=== PATIENT | female | born 1995 | race Caucasian/White ===

== ENCOUNTER 2021-01-20 06:31 | Day surgery (SDC) | payer BC, OTHER ==
[~2021-01-20 06:31] MED LIST: Lactated Ringers 1,000 ML IV SCH; Sodium Chloride 0.9% 10 ML SDV IV PRN; Sodium Chloride 0.9% 10 ML Syringe FLUSH PRN; Sodium Chloride 0.9% 2.5 ML Syringe FLUSH PRN; ceFAZolin 2 GM in Premix Bag 1 BAG IV ONE
[2021-01-20] MEDS ORDERED: Midazolam 1 MG/ML 2 ML SDV ONE (06:58)
[2021-01-20] MEDS ORDERED: Propofol 200 MG/20 ML SDV ONE (06:58)
[2021-01-20] MEDS ORDERED: fentaNYL 250 MCG/5 ML SDV ONE ×2 (06:59→09:06)
[2021-01-20] MEDS ORDERED: Ondansetron 4 MG/2 ML SDV ONE (07:00)
[2021-01-20] MEDS ORDERED: Glycopyrrolate 0.2 MG/ML SDV ONE (07:00)
[2021-01-20] MEDS ORDERED: Lidocaine 2% 5 ML SDV ONE (07:00)
[2021-01-20] MEDS ORDERED: Rocuronium Bromide 50 MG/5 ML Syringe ONE (07:00)
[2021-01-20] MEDS ORDERED: Ketorolac 30 MG/ML SDV ONE (07:00)
[2021-01-20] MEDS ORDERED: fentaNYL 100 MCG/2 ML SDV IVPUSH PRN (07:11)
[2021-01-20] MEDS ORDERED: Acetaminophen 1,000 MG in Premix Bag 1 BAG IV PRN (07:11)
[2021-01-20] MEDS ORDERED: ceFAZolin 1 GM Vial ONE (07:13)
[2021-01-20] MEDS ORDERED: Sodium Chloride 0.9% 20 ML ONE (07:13)
--- NOTE | 2021-01-20 07:20 | PCM.PREANE ---
Preanesthetic Assessment - Anesthesia/Transfusion/Family Hx Anesthesia History: No Prior Anesthesia Family History of Anesthesia Reaction: No Transfusion History: No Prior Transfusion(s) - Review of Systems General: No Symptoms Pulmonary: No Symptoms Cardiovascular: No Symptoms Gastrointestinal: No Symptoms Neurological: No Symptoms Other: Reports: None - Physical Assessment Vital Signs: Last Vital Signs Temp 97.7 F 01/20/21 07:11 Pulse 57 L 01/20/21 07:11 Resp 16 01/20/21 07:11 BP 105/57 L 01/20/21 07:11 Pulse Ox 96 01/20/21 07:11 Height: 5 ft 5 in Weight: 92.533 kg ASA Class: 2 Mental Status: Alert & Oriented x3 Airway Class: Mallampati = 2 Dentition: Reports: Normal Dentition ROM/Head Extension: Full Lungs: Clear to Auscultation, Normal Respiratory Effort Cardiovascular: Regular Rate, Regular Rhythm - Lab Values: Laboratory Last Values Urine HCG, Qual NEGATIVE (NEGATIVE) 01/20/21 06:40 - Allergies Allergies/Adverse Reactions: Allergies Allergy/AdvReac Type Severity Reaction Status Date / Time No Known Allergies Allergy Verified 01/20/21 07:09 - Blood Blood Available: No - Anesthesia Plan Pre-Op Medication Ordered: None - Acknowledgements Anesthesia Type Planned: General Anesthesia Pt an Appropriate Candidate for the Planned Anesthesia: Yes Alternatives and Risks of Anesthesia Discussed w Pt/Guardian: Yes Pt/Guardian Understands and Agrees with Anesthesia Plan: Yes PreAnesthesia Questionnaire HEENT History: Reports: Other (See Below) Other HEENT History: wears contacts/glasses Cardiovascular History: Reports: None Respiratory History: Reports: None Gastrointestinal History: Reports: None Genitourinary History: Reports: None 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: Musculoskeletal History: Reports: None Neurological History: Reports: None Psychiatric History: Reports: Depression Endocrine/Metabolic History: Reports: Obesity/BMI 30+ Hematologic History: Reports: None Immunologic History: Reports: None Oncologic (Cancer) History: Reports: None Dermatologic History: Reports: None - Past Surgical History Head Surgeries/Procedures: Reports: None HEENT Surgical History: Reports: Myringotomy w Tube(s) Cardiovascular Surgical History: Reports: None GI Surgical History: Reports: Other (See Below) Other GI Surgeries/Procedures: radiofrequency ablation greater saphenous veins in 2018 in [place] Female Surgical History: Reports: None Endocrine Surgical History: Reports: None Neurological Surgical History: Reports: None Musculoskeletal Surgical History: Reports: None Oncologic Surgical History: Reports: None Dermatological Surgical History: Reports: None - SUBSTANCE USE Tobacco Use Status *Q: Never Tobacco User - HOME MEDS Home Medications: Home Meds Scopolamine 1 patch TRDERM ONETIME 01/19/21 [History] - CURRENT (IN HOUSE) MEDS Current Meds: Current Medications Fentanyl (Sublimaze) 50 mcg IVPUSH Q5M PRN PRN Reason: Pain Lactated Ringer's (Ringers, Lactated) 1,000 mls @ 125 mls/hr IV ASDIRECTED LEONOR Last Admin: 01/20/21 07:08 Dose: 125 mls/hr Documented by: Acetaminophen 1,000 mg/ Premix 100 mls @ 400 mls/hr IV Q6H PRN PRN Reason: Pain Sodium Chloride (Saline Flush) 2.5 ml FLUSH ASDIRECTED PRN PRN Reason: Keep Vein Open Sodium Chloride (Normal Saline) 10 ml IV ASDIRECTED PRN PRN Reason: IV Use Sodium Chloride (Saline Flush) 10 ml FLUSH ASDIRECTED PRN PRN Reason: Keep Vein Open Discontinued Medications Cefazolin Sodium (Ancef) Confirm Administered Dose 2 gm .ROUTE .STK-MED ONE Stop: 01/20/21 07:14 Fentanyl (Sublimaze) Confirm Administered Dose 250 mcg .ROUTE .STK-MED ONE Stop: 01/20/21 07:00 Glycopyrrolate (Robinul) Confirm Administered Dose 0.8 mg .ROUTE .STK-MED ONE Stop: 01/20/21 07:01 Cefazolin Sodium/Dextrose 2 gm (/ Premix) 50 mls @ 100 mls/hr IV ONETIME ONE Stop: 01/17/21 09:54 Sodium Chloride (Normal Saline) Confirm Administered Dose 20 mls @ as directed .ROUTE .STK-MED ONE Stop: 01/20/21 07:14 Ketorolac Tromethamine (Toradol) Confirm Administered Dose 30 mg .ROUTE .STK-MED ONE Stop: 01/20/21 07:01 Lidocaine (Xylocaine-Mpf 2%) Confirm Administered Dose 5 ml .ROUTE .STK-MED ONE Stop: 01/20/21 07:01 Midazolam HCl (Versed 1 Mg/Ml) Confirm Administered Dose 2 mg .ROUTE .STK-[place] ONE Stop: 01/20/21 06:59 Ondansetron HCl (Zofran) Confirm Administered Dose 4 mg .ROUTE .[email or web address] ONE Stop: 01/20/21 07:01 Propofol (Diprivan 20 Ml) Confirm Administered Dose 200 mg .ROUTE .[email or web address] ONE Stop: 01/20/21 06:59 Rocuronium [place] (Rocuronium [place]) Confirm Administered Dose 50 mg .ROUTE .[employer] ONE Stop: 01/20/21 07:01
[2021-01-20] MEDS ORDERED: Octyl 2-Cyanoacrylate 1 Tube ONE (07:32)
[2021-01-20] MEDS ORDERED: Bupivacaine 0.5% 10 ML SDV ONE (07:32)
--- NOTE | 2021-01-20 10:13 | PCM.OPNOTE ---
<Stefany Del Cid - Last Filed: 01/20/21 10:11> - General Post-Op/Procedure Note Date of Surgery/Procedure: 01/20/21 Operative Procedure(s): laparoscopic cholecystectomy Findings: normal gallbladder anatomy with omental fibrosis Pre Op Diagnosis: biliary dyskinesia Post-Op Diagnosis: biliary dyskinesia Anesthesia Technique: General ET Tube Fluid Replacement, Intraop: 0 EBL in mLs: 5 Condition: Good <Chayito Ruano - Last Filed: 01/20/21 10:34> - General Post-Op/Procedure Note Findings: Normal appearing gallbladder with adhesions to the surrounding omentum Fluid Replacement, Intraop: 1,500 Output, Urine Amount: 500 Free Text/Narrative:: Intake & Output 01/19/21 01/20/21 01/20/21 22:59 06:59 14:59 Intake Total 0 Balance 0
--- NOTE | 2021-01-20 11:07 | PCM.POSTAN ---
POST ANESTHESIA ASSESSMENT - MENTAL STATUS Mental Status: Alert, Oriented - VITAL SIGNS Vital Signs: Last Vital Signs Temp 98.1 F 01/20/21 10:13 Pulse 61 01/20/21 11:04 Resp 16 01/20/21 11:04 BP 93/53 L 01/20/21 11:04 Pulse Ox 93 L 01/20/21 11:04 - RESPIRATORY Respiratory Status: Respiratory Rate WNL, Airway Patent, O2 Saturation Stable, Supplemental Oxygen - CARDIOVASCULAR CV Status: Pulse Rate WNL, Blood Pressure Stable - GASTROINTESTINAL GI Status: No Symptoms - POST OP HYDRATION Hydration Status: Adequate & Stable
--- NOTE | 2021-01-20 12:43 | PCM48HPAN ---
Post Anesthesia Note - EVALUATION WITHIN 48HRS OF ANESTHETIC Vital Signs in Normal Range: Yes Patient Participated in Evaluation: Yes Respiratory Function Stable: Yes Airway Patent: Yes Cardiovascular Function Stable: Yes Hydration Status Stable: Yes Pain Control Satisfactory: Yes Nausea and Vomiting Control Satisfactory: Yes Mental Status Recovered: Yes Vital Signs: Last Vital Signs Temp 98.1 F 01/20/21 10:13 Pulse 61 01/20/21 11:04 Resp 16 01/20/21 11:04 BP 93/53 L 01/20/21 11:04 Pulse Ox 93 L 01/20/21 11:04
--- NOTE | 2021-01-20 12:57 | OR ---
SURGEON: CHAYITO HAMMOND MD DATE OF PROCEDURE: 01/20/2021 PREOPERATIVE DIAGNOSIS: Biliary dyskinesia. POSTOPERATIVE DIAGNOSIS: Biliary dyskinesia. PROCEDURE PERFORMED: Laparoscopic cholecystectomy. PRIMARY SURGEON: Chayito Hammond MD ANESTHESIA: General endotracheal anesthesia. FLUIDS: 1500 mL of crystalloid. ESTIMATED BLOOD LOSS: 5 mL. URINE OUTPUT: 500 mL. FINDINGS: Normal-appearing gallbladder with adhesions to the surrounding omentum. COMPLICATIONS: None. INDICATIONS FOR EXAMINATION: The patient is a 25-year-old female who presented to the clinic with biliary dyskinesia. I explained the need for a cholecystectomy. I would attempt it laparoscopic, but convert to open should I be unable to perform it safely. I explained the expected perioperative course as well as the risks including bleeding, infection, or damage to surrounding structures. The patient verbalized understanding and wishes to proceed. PROCEDURE IN DETAIL: The patient was brought into the OR and placed on the OR table in supine position. A time-out was completed verifying the patient's name, age, date of , allergies, and procedure to be performed. General endotracheal anesthesia was induced. The left arm was tucked to the patient's side and a Malloy catheter placed. The abdomen was prepped and draped in usual standard fashion. I anesthetized the infraumbilical fold with 0.5% Marcaine plain. An 11 blade was used to make an incision along the fold. Electrocautery was used to dissect down to the level of subcutaneous fat. I bluntly dissected down to the fascia. The fascia was elevated with Ashleigh's and incised sharply with curved Cody scissors. I then dissected down to the peritoneum. The peritoneum was entered bluntly using a hemostat. Entry into the abdomen was palpated digitally. A 12 mm Ko trocar was inserted, and I insufflated the abdomen. A 5 mm 30-degree scope was inserted, and I inspected the area underneath my initial trocar placement. No damage to surrounding structures was noted. The patient was placed into reverse Trendelenburg position and airplaned slightly to the left. 5 mm trocars placed in the following locations under direct visualization; one in the epigastric area, one in the right flank, and one 2 fingerbreadths below the right subcostal margin in the midclavicular line. The dome of the gallbladder was grasped and elevated anteriorly. There were adhesions to the surrounding omentum along the body and infundibulum of the gallbladder. These were taken down with blunt dissection. The infundibulum was grasped, and I began dissection along the critical structures. Using a combination of hook cautery and gentle blunt dissection, I was able to dissect out the cystic duct and artery as well as the proximal one-third of the cystic plate. Once my critical view was achieved, a photograph was taken. I triply clipped and ligated the cystic duct. I doubly clipped and ligated the cystic artery. The remainder of the attachments of the gallbladder to the cystic plate were taken down using electrocautery. Once the gallbladder was free from the liver bed, it was placed in an Endo Catch bag and removed through the infraumbilical port site. I inspected my operative field. There was no evidence of bleeding or bile leakage. A photograph was taken. The 5 mm trocars were then removed under direct visualization and the abdomen desufflated. The 12 mm trocar was removed as well. The fascia at the infraumbilical port site was closed with interrupted 0 Vicryl sutures. Subcutaneous fat layer was closed with interrupted 3-0 Vicryl stitches. The skin was closed with a running 4-0 Monocryl stitch. The 5 mm trocar sites were closed with interrupted 4-0 Monocryl sutures. Dermabond and sterile dressings were applied. All counts were complete and correct at the end of the case. The patient was extubated and taken to PACU in stable condition. MOHAN COPELAND /[id number]
[2021-01-20 13:33] VITALS: BP 98/55; PULSE 70
== END 2021-01-20 13:20 | disposition home or self-care (01) ==
LOC: MW.SDS 06:31
PROVIDERS: ATTEND Surgery
DX: K81.1 Chronic cholecystitis (principal); K82.8 Other specified diseases of gallbladder; K66.0 Peritoneal adhesions (postprocedural) (postinfection); E66.9 Obesity, unspecified; Z98.890 Other specified postprocedural states; Z68.33 Body mass index [BMI] 33.0-33.9, adult
CPT/HCPCS: 47562; 81025; 88304; A9270; J0131; J0690; J1885; J2250; J2405; J2704; J3010; J3490; J7120; 00790